=== PATIENT | male | born 1985 | race Caucasian/White ===

== ENCOUNTER 2024-05-13 16:12 | Emergency (ER) | payer OTHER, SELFPAY ==
[2024-05-13 16:18] VITALS: BP 132/96
--- NOTE | 2024-05-13 17:16 | ED.MUSCINJ ---
HPI-Injury
General
Chief Complaint: Musculo-Skeletal Complaint
Time Seen by Provider: 05/13/24 17:02
History of Present Illness-Injury
Initial Injury comments:
Patient presents to the emergency department with pain and swelling to left diego. Injured diego while snowboarding when he struck a rail 1 week ago. Throughout the week he noticed a small wound on his anterior leg. Today he noticed bruising around
his ankle though he did not injure the ankle or have any pain in the ankle. There is no numbness in the foot. There is no tingling in the foot. There is no weakness in the foot.
Phy Exam
Physical Exam
Physical Exam:
General: No acute distress
Head: NCAT
Neck, Normal in appearance, no swelling
Respiratory: No Respiratory distress
Abdomen: No distension
Ext: Left mid diego with 2 cm abrasion with underlying swelling. The compartment is soft. Palpable pedal pulses. Sensation intact to light touch throughout foot including first dorsal webspace. Dorsiflexion and plantarflexion are strong and 5 out
of 5.
Neuro: STOKES, AOx4
Psych: Normal affect
Skin: Normal color
Injury Course
Orders/Labs/Results
Orders:
Orders
05/13/24 17:17
CR Leg Tibia/fibula Left 2 Vw Urgent
Comment:
Reason For Exam: L diego pain, swelling
05/13/24 18:[address] Non Medication Order As Directed
Physician Order: nadeem wrap L diego
05/13/24 18:30
US Periph Venous LOWER Ext LT Urgent
Comment:
Reason For Exam: rule out dvt
*Critical Care Note
Total Time (30-74mins, 75-104mins- exclusive of procedures): Not Applicable
ED Attending Note
ED Attending Note
ED Attending Note:
Suspect small lobe flexure venous bleed. There is no evidence of compartment clinically. Will rule out fracture. Pain is all anterior and there is no swelling or tenderness around the deep veins in the posterior leg. Doubt DVT. Will check x-ray
-
Portions of this chart may have been created with voice recognition software.� Occasional wrong word or��sound alike� substitutions may have occurred due to the inherent limitations of voice recognition software.
Discharge Plan
Departure
Patient Disposition: Home (Routine Discharge)
Date of Disposition: 05/13/24
Time of Disposition: 19:47
Patient with high blood pressure during this ER visit?: No
Discharge Problem:
Contusion of left leg
Referrals:
NONE,* [Family Provider] -
Pasha Higgins MD [Active] -
Activity Restrictions/Additional Instructions:
Please keep compression dressing on. Keep elevated. Ice for 20 minutes at a time. If no improvement in 1 week return to the emergency department with worsening symptoms including numbness or tingling or weakness to the foot, or if the leg becomes
tense
Interventions
Interventions:
*Risk Screen - Suicide Last Done: 05/13/24 16:18
*General Assessment Last Done: 05/13/24 16:18
*ED COVID-19 Vaccine History Last Done: 05/13/24 16:18
*Nursing Disposition Last Done: 05/13/24 20:43
ED-Musculoskeletal Assessment Last Done: 05/13/24 20:33
Discharge Date and Time
Discharge Date/Time: 05/13/24 20:44
Print Language: AMHARIC
== END 2024-05-13 20:44 | disposition home or self-care (01) ==
LOC: EMR 16:12
PROVIDERS: EMERGENCY PHYSICIAN Emergency Medicine
DX: S80.12XA Contusion of left lower leg, initial encounter (principal); X58.XXXA Exposure to other specified factors, initial encounter; Y93.23 Activity, snow (alpine) (downhill) skiing, snowboarding, sledding, tobogganing and snow tubing
CPT/HCPCS: 99284; 73590; 93971